=== PATIENT | female | born 2000 | race Caucasian/White ===

== ENCOUNTER 2022-01-09 11:48 | Emergency (ER) | payer OTHER, SELFPAY ==
[2022-01-09 11:54] VITALS: BP 108/62; PULSE 107; RESP 14; TEMP 36.6; O2SAT 99
[2022-01-09 12:03] VITALS: BP 108/62; PULSE 107; RESP 14; TEMP 36.6; O2SAT 99
--- NOTE | 2022-01-09 12:05 | ED.GENADULT ---
HPI - General Adult General Chief complaint: Nausea/Vomiting/Diarrhea Stated complaint: Vomiting/Diarrhea Time Seen by Provider: 01/09/22 12:05 Source: patient Mode of arrival: ambulatory Limitations: no limitations History of Present Illness HPI narrative: 21-year-old female patient presents to the [facility] with complaints of nausea vomiting diarrhea that started this past . Patient states she did test her self on Monday for COVID and it was negative. Patient states she is vaccinated for COVID. Patient states she is also being cramping and did start her period yesterday. Patient is sexually active but not on control. Patient denies any pain with urination. Patient states she has been able to keep down a little water today but started vomiting again this morning. Denies any abdominal pain when she is not vomiting. Patient denies any runny nose, congestion, sore throat, coughing, sneezing, chest pain or shortness of breath at this time. Related Data Allergies Allergy/AdvReac Type Severity Reaction Status Date / Time No Known Allergies Allergy Mild Verified 01/09/22 12:02 Review of Systems Review of Systems: CONSTITUTIONAL: Denies fever, chills, or sweats. EYES: Denies visual changes, redness, or discharge. ENT: Denies rhinorrhea, congestion, sore throat, or otalgia. CARDIOVASCULAR: Denies chest pain, palpitations, or edema. RESPIRATORY: Denies cough or dyspnea. GASTROINTESTINAL: Denies abdominal pain, positive nausea, vomiting, and diarrhea. GENITOURINARY: Denies dysuria or hematuria. SKIN: Denies rash or itching. MUSCULOSKELETAL: Denies back pain, joint pain, or myalgia. NEUROLOGIC: Denies headache, numbness, or weakness. PSYCHIATRIC: Denies anxiety or depression. PMFSH Past Medical History Medical History (Updated 01/09/22 @ 12:54 by JOSE Simental) No significant past medical history Family History Family History (Updated 04/13/18 @ 15:02 by DOCTOR UNKNOWN) Grandparent Diabetes mellitus Family history of malignant neoplasm of brain Father Family history of hypercholesterolemia Hypertension Other Family history of lupus erythematosus Family history of malignant neoplasm of breast Social History Social History Smoking status: Never smoker Alcohol intake: never Exam Narrative: GENERAL: Well-appearing, well-nourished, and in no acute distress. HEAD: Normocephalic, atraumatic. EYES: PERRLA and EOMI. ENT: Right nare with erythema and edema noted, no rhinorrhea or epistaxis. Mucous membranes moist. Posterior pharynx with postnasal drip noted with slight erythema but no swelling or exudates noted. Bilateral TMs are clear with no erythema or foreign bodies to the canal. NECK: Supple. No lymphadenopathy CHEST: Clear to auscultation. No respiratory distress. Patient able talk in clear complete sentences. No tripoding noted. HEART: Regular rate and rhythm. No murmur heard. Normal peripheral pulses. ABDOMEN: Soft, flat, nondistended. No guarding, rebound tenderness, or rigid. No pulsatilla masses. Bowel sounds present in all four quadrants. No organomegaly. Negative Carlos?s sign. No periumbicial tenderness. No Supra public tenderness or distension. Good femoral pulses bilaterally. No hernia noted. No scars or surface trauma. EXTREMITIES: Normal range of motion. No edema. SKIN: Warm, dry, no rash. NEURO: No focal deficits. Alert and oriented x3. Course Course Level of Care: Express Care Visit Reevaluation(s) Reevaluation #1: Reevaluated patient still patient states she is feeling much better since receiving the Zofran. Discussed with her that all of her testing back negative. Discussed with her most likely this is a virus we will go ahead and send her home with Zofran to help with the vomiting so she can hydrate at home however if she continues to have vomiting despite the Zofran I would advise her to go the ER for further evaluation and treatment. Patient verbalized unde
[2022-01-09] MEDS: ONDANSETRON HCL ODT 4 MG TABLET PO (12:20)
== END 2022-01-09 12:56 | disposition home or self-care (01) ==
PROVIDERS: Emergency Provider Nurse Practitioner Family; PCP Family Medicine
DX: K52.9 Noninfective gastroenteritis and colitis, unspecified (principal); Z20.822 Contact with and (suspected) exposure to COVID-19
CPT/HCPCS: 81003; 81025; 87081; 87426; 87880; 99213; A9270; C9803; G0463

== ENCOUNTER 2025-03-11 16:26 | Outpatient (CLI) | payer OTHER, SELFPAY ==
--- NOTE | ~2025-03-11 | CT_ITS ---
Exam: CT chest without contrast Clinical History: [Abnormal findings on diagnostic imaging. Left lung nodule ] Comparison: [ None available] Technique: Multiple axial CT images of the chest without with IV contrast. Sagittal and coronal reformatted images were obtained. FINDINGS: Lungs and pleura: [ Visualized tracheobronchial tree is patent.] No pneumothorax. No pleural effusion. No pulmonary mass. There is a 9 mm noncalcified pulmonary nodule in the medial aspect of the left upper lobe. Mediastinum and pulmonary umesh: [ No mass or adenopathy.] Axillary/intramammary and supraclavicular: [ No mass or adenopathy.] Heart and great vessels: [ Normal heart size.[ [ No pericardial effusion.] [ No aneurysm.] Chest Wall: [ Unremarkable.] Upper Abdomen: [ No significant findings.] Osseous structures: [ No acute fracture or destructive lesion.] [ Multilevel degenerative change in the visualized spine.] Additional findings: [ None of significance.] IMPRESSION: 1. There is a 9 mm noncalcified pulmonary nodule in the medial aspect of the left upper lobe. A PET/CT and/or biopsy is recommended. Reviewed, dictated and finalized at location Q. IMPRESSION: 1. There is a 9 mm noncalcified pulmonary nodule in the medial aspect of the le ft upper lobe. A PET/CT and/or biopsy is recommended.
--- OUTSIDE RECORDS SUMMARY | 2025-03-11 17:54 | XMS_ITS | Clinical Summary ---
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 Name Role Phone Unavailable Primary Care Provider Unavailabl e Allergies No known active allergies Medications levonorgestreL-e thinyl estrad (Sronyx) 0.1-20 mg-mcg tablet TAKE 1 TABLET BY MOUTH EVERY DAY 84 Tablet 04/25/2023 Active Active Problems No known active problems Social History Tobacco Use Types Packs/Day Years Used Date Smoking Tobacco: Never Assessed Comments No Sex and Gender Information Value Date Recorded Sex Assigned at Not on file Legal Sex Female 3:01 PM CDT Gender Identity Not on file Sexual Orientation Not on file Last Filed Vital Signs Vital Sign Reading Time Taken Comments Blood Pressure 112/66 03/14/2022 8:10 AM CDT Pulse - - Temperature - - Respiratory Rate - - Oxygen Saturation - - Inhaled Oxygen Concentration - - Weight 47.1 kg (103 lb 12.8 oz) 03/14/2022 8:10 AM CDT Height 157.5 cm (5' 2) 03/14/2022 8:10 AM CDT Body Mass Index 18.99 03/14/2022 8:10 AM CDT Plan of Treatment Health Maintenance Due Date Last Done Comments CHLAMYDIA SCREENING (ANNUAL) 11-24 YEARS 2013 HPV VACCINES (1 - 3-dose series) 2017 DTAP/TDAP/TD VACCINES (1 - Tdap) 2021 HEPATITIS B VACCINES (1 of 3 - 19+ 3-dose series) 02/13 CERVICAL CANCER SCREENING 2023 HPV/Cotest (21-29) 2023 PAP SMEAR 2023 INFLUENZA VACCINE (#1) [address] [employer]
--- OUTSIDE RECORDS SUMMARY | 2025-03-11 17:54 | XMS_ITS | Encounter Summary ---
Author Organization [facility] Address [address] 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 Name Role Phone Unavailable Primary Care Provider Unavailabl e Reason for Visit * Reason Onset Date Comments Patient Requested Call 04/16/2024 Encounter Details Date Type Department Care Team (Late st Contact Info) Description 04/16/2024 Telephone [facility] [address] [place], [place] [id number] Elsie Olivas APRN-CNP [address] [place] [address] Patient Requested Call Social History Tobacco Use Types Packs/Day Years Used Date Smoking Tobacco: Never Smokeless Tobacco: Never Alcohol Use Standard Drinks/Week Comments Yes 0 (1 standard drink = 0.6 oz pur e alcohol) occasionally PHQ-2 Answer Date Recorded Patient Health Questionnaire-2 Score 0 04/15/2024 Comments No Sex and Gender Information Value Date Recorded Sex Assigned at Not on file Legal Sex Female 5:28 PM JOURNEYMAN WELDER Gender Identity Not on file Sexual Orientation Not on file documented as of this encounter Miscellaneous Notes * Telephone Encounter - Alida Hernández APRN-CNP - 04/16/2024 12:17 PM JOURNEYMAN WELDER Gave her Billing phone # NEYMAN WELDER * Telephone Encounter - Radha Figueredo - 04/16/2024 12:04 PM CST Who is calling? self What is the reason for call? Patient had trouble with insurance going thru. Dad checked out his insurance and it should be fine and is active. Expected Response from the Clinic? Please call patient at the above noted phone number. Did you notify caller of response or call back timeframe? YES Encounter before 6:30p - same day NOTE: You can also call [facility] NEYMAN WELDER NEYMAN WELDER documented in this encounter Plan of Treatment Not on file documented as of this encounter Visit Diagnoses Not on filedocumented in this encounter
--- OUTSIDE RECORDS SUMMARY | 2025-03-11 17:54 | XMS_ITS | Clinical Summary ---
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 Epidural hematoma: No epidural hematoma. Intraparenchymal hemorrhage: No intraparenchymal hemorrhage. Subarachnoid hemorrhage: No subarachnoid hemorrhage. Intraventricular hemorrhage: No. Midline shift: No. Procedure Note Baljinder Delgado MD - 02/11/2025 PROCEDURE: CT HEAD WO CONTRAST, CT LUMBAR SPINE WO CONTRAST, CTTHORACIC SPINE WO CONTRAST, CT CERVICAL SPINE WO CONTRAST, CT FACIAL BONES WO CONTRAST, DATE/TIME OF EXAM: 02/11/2025 3:34 PM, LOCATION [facility] INDICATION: T14.90XA: Trauma ADDITIONAL CLINICAL INFORMATION: Ordering Provider Reason For Exam: Technologist Note: Additional: COMPARISON: None. TECHNIQUE: CT of the head, cervical spine, and maxillofacial bones,orbits, and paranasal sinuses was performed without contrast according tostandard protocol. Reformatted axial, sagittal, and coronal images of thethoracic and lumbar spine were obtained by the technologist from a concurrently performed body CT and sent to the workstation for review. COMPARISON: FINDINGS: Head: No acute intra- or extra-axial fluid collections are identified. The ventricles are of normal size, shape, and morphology. The basilarcisterns are patent. No mass effect or midline shift is seen. The aponte-whitematter differentiation is normal. No acute calvarial fracture is identified.CSF containing outpouching of the planum sphenoid without associated parenchymal changes, likely congenital or chronic posttraumatic (series4 image 163, series 6 image 22). Maxillofacial: The orbits appear normal. The paranasal sinuses are clear. Leftward deviation of nasal septum with bony spur. The hard palate, mandible, and temporomandibular joints appear normal. No acute facial bone fracturesare identified. The mastoid air cells are clear. Small left periorbital soft tissue hematoma. Cervical spine: There is gentle cervical kyphosis. Vertebral bodies are normal in height without evidence of acute fracture. The craniocervical junction isnormal. The intervertebral discs appear normal. No central canal stenosis isseen. The facets appear normal. The uncovertebral joints appear normal. Noneural foraminal stenosis is seen. There is mild scarring in the lung apices. Thoracic spine: Mild dextrocurvature of the thoracic spine. Vertebral bodies are normalin height without evidence of acute fracture. The intervertebral discsappear normal. No central canal stenosis is seen. The facets appear normal.No neural foraminal stenosis is seen. No soft tissue abnormality is identified. Lumbar spine: The lumbar spine is straightened which could be positional. Vertebral bodies are normal in height without evidence of acute fracture. The intervertebral discs appear normal. No central canal stenosis is seen.The facets appear normal. No neural foraminal stenosis is seen. No softtissue abnormality is identified. Brain injury guidelines: Skull fracture: No Subdural hematoma: No subdural hematoma. Epidural hematoma: No epidural hematoma. Intraparenchymal hemorrhage: No intraparenchymal hemorrhage. Subarachnoid hemorrhage: No subarachnoid hemorrhage. Intraventricular hemorrhage: No. Midline shift: No. IMPRESSION: 1.No acute intracranial hemorrhage, territorial infarct or herniation.No acute calvarial fractures. 2.No acute facial bone fractures identified. CSF containing outpouchingof the planum sphenoidale without associated parenchymal changes, likely congenital or less likely chronic posttraumatic deformity (series 4image 163, series 6 image 22). 3.No evidence of acute fracture in the cervical, thoracic, or lumbarspine. 4.Please refer to the concurrent, dedicated body report for findings inthe chest, abdomen, and pelvis. The report was drafted by Mario Ocampo MD (psychiatry resident) 02/11/2025 3:38 PM. > Dictated by Mario Ocampo MD 02/11/2025 3:37 PM > Dictated by Microbiology Coordinator I, Baljinder Delgado MD have personally reviewed and interpreted this examination/study. > Interpreting Provider: Baljinder Delgado MD on 02/11/2025 5:08 PM Benji Sosa MD CT ORDERABLES Final Resu lt * CT CERVICAL SPINE WO CONTRAST - C-Spine Trauma, Spine fracture (02/11/2025 3:33 PM CDT) Anatomical Region Laterality Modality Spine Computed Tomogra phy 02/11/2025 3:37 PM CDT Impressions 02/11/2025 5:08 PM CDT IMPRESSION: 1.No acute intracranial hemorrhage, territorial infarct or herniation. No acute calvarial fractures. 2.No acute facial bone fractures identified. 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 3.No evidence of acute fracture in the cervical, thoracic, or lumbar spine. 4.Please refer to the concurrent, dedicated body report for findings in the chest, abdomen, and pelvis. The report was drafted by Mario Ocampo MD (psychiatry resident) 02/11/2025 3:38 PM. > Dictated by Mario Ocampo MD 02/11/2025 3:37 PM > Dictated by Microbiology Coordinator I, Baljinder Delgado MD have personally reviewed and interpreted this examination/study. > Interpreting Provider: Baljinder Delgado MD on 02/11/2025 5:08 PM Narrative 02/11/2025 5:08 PM CDT PROCEDURE: CT HEAD WO CONTRAST, CT LUMBAR SPINE WO CONTRAST, CT THORACIC SPINE WO CONTRAST, CT CERVICAL SPINE WO CONTRAST, CT FACIAL BONES WO CONTRAST, DATE/TIME OF EXAM: 02/11/2025 3:34 PM, LOCATION [facility] INDICATION: T14.90XA: Trauma ADDITIONAL CLINICAL INFORMATION: Ordering Provider Reason For Exam: Technologist Note: Additional: COMPARISON: None. TECHNIQUE: CT of the head, cervical spine, and maxillofacial bones, orbits, and paranasal sinuses was performed without contrast according to standard protocol. Reformatted axial, sagittal, and coronal images of the thoracic and lumbar spine were obtained by the technologist from a concurrently performed body CT and sent to the workstation for review. COMPARISON: FINDINGS: Head: No acute intra- or extra-axial fluid collections are identified. The ventricles are of normal size, shape, and morphology. The basilar cisterns are patent. No mass effect or midline shift is seen. The aponte-white matter differentiation is normal. No acute calvarial fracture is identified. CSF containing outpouching of the planum sphenoid without associated parenchymal changes, likely congenital or chronic posttraumatic (series 4 image 163, series 6 image 22). Maxillofacial: The orbits appear normal. The paranasal sinuses are clear. Leftward deviation of nasal septum with bony spur. The hard palate, mandible, and temporomandibular joints appear normal. No acute facial bone fractures are identified. The mastoid air cells are clear. Small left periorbital soft tissue hematoma. Cervical spine: There is gentle cervical kyphosis. Vertebral bodies are normal in height without evidence of acute fracture. The craniocervical junction is normal. The intervertebral discs appear normal. No central canal stenosis is seen. The facets appear normal. The uncovertebral joints appear normal. No neural foraminal stenosis is seen. There is mild scarring in the lung apices. Thoracic spine: Mild dextrocurvature of the thoracic spine. Vertebral bodies are normal in height without evidence of acute fracture. The intervertebral discs appear normal. No central canal stenosis is seen. The facets appear normal. No neural foraminal stenosis is seen. No soft tissue abnormality is identified. Lumbar spine: The lumbar spine is straightened which could be positional. Vertebral bodies are normal in height without evidence of acute fracture. The intervertebral discs appear normal. No central canal stenosis is seen. The facets appear normal. No neural foraminal stenosis is seen. No soft tissue abnormality is identified. Brain injury guidelines: Skull fracture: No Subdural hematoma: No subdural hematoma. Epidural hematoma: No epidural hematoma. Intraparenchymal hemorrhage: No intraparenchymal hemorrhage. Subarachnoid hemorrhage: No subarachnoid hemorrhage. Intraventricular hemorrhage: No. Midline shift: No. Procedure Note Baljinder Delgado MD - 02/11/2025 PROCEDURE: CT HEAD WO CONTRAST, CT LUMBAR SPINE WO CONTRAST, CTTHORACIC SPINE WO CONTRAST, CT CERVICAL SPINE WO CONTRAST, CT FACIAL BONES WO CONTRAST, DATE/TIME OF EXAM: 02/11/2025 3:34 PM, LOCATION [facility] INDICATION: T14.90XA: Trauma ADDITIONAL CLINICAL INFORMATION: Ordering Provider Reason For Exam: Technologist Note: Additional: COMPARISON: None. TECHNIQUE: CT of the head, cervical spine, and maxillofacial bones,orbits, and paranasal sinuses was performed without contrast according tostandard protocol. Reformatted axial, sagittal, and coronal images of thethoracic and lumbar spine were obtained by the technologist from a concurrently performed body CT and sent to the workstation for review. COMPARISON: FINDINGS: Head: No acute intra- or extra-axial fluid collections are identified. The ventricles are of normal size, shape, and morphology. The basilarcisterns are patent. No mass effect or midline shift is seen. The aponte-whitematter differentiation is normal. No acute calvarial fracture is identified.CSF containing outpouching of the planum sphenoid without associated parenchymal changes, likely congenital or chronic posttraumatic (series4 image 163, series 6 image 22). Maxillofacial: The orbits appear normal. The paranasal sinuses are clear. Leftward deviation of nasal septum with bony spur. The hard palate, mandible, and temporomandibular joints appear normal. No acute facial bone fracturesare identified. The mastoid air cells are clear. Small left periorbital soft tissue hematoma. Cervical spine: There is gentle cervical kyphosis. Vertebral bodies are normal in height without evidence of acute fracture. The craniocervical junction isnormal. The intervertebral discs appear normal. No central canal stenosis isseen. The facets appear normal. The uncovertebral joints appear normal. Noneural foraminal stenosis is seen. There is mild scarring in the lung apices. Thoracic spine: Mild dextrocurvature of the thoracic spine. Vertebral bodies are normalin height without evidence of acute fracture. The intervertebral discsappear normal. No central canal stenosis is seen. The facets appear normal.No neural foraminal stenosis is seen. No soft tissue abnormality is identified. Lumbar spine: The lumbar spine is straightened which could be positional. Vertebral bodies are normal in height without evidence of acute fracture. The intervertebral discs appear normal. No central canal stenosis is seen.The facets appear normal. No neural foraminal stenosis is seen. No softtissue abnormality is identified. Brain injury guidelines: Skull fracture: No Subdural hematoma: No subdural hematoma. Epidural hematoma: No epidural hematoma. Intraparenchymal hemorrhage: No intraparenchymal hemorrhage. Subarachnoid hemorrhage: No subarachnoid hemorrhage. Intraventricular hemorrhage: No. Midline shift: No. IMPRESSION: 1.No acute intracranial hemorrhage, territorial infarct or herniation.No acute calvarial fractures. 2.No acute facial bone fractures identified. CSF containing outpouchingof the planum sphenoidale without associated parenchymal changes, likely congenital or less likely chronic posttraumatic deformity (series 4image 163, series 6 image 22). 3.No evidence of acute fracture in the cervical, thoracic, or lumbarspine. 4.Please refer to the concurrent, dedicated body report for findings inthe chest, abdomen, and pelvis. The report was drafted by Mario Ocampo MD (psychiatry resident) 02/11/2025 3:38 PM. > Dictated by Mario Ocampo MD 02/11/2025 3:37 PM > Dictated by Microbiology Coordinator I, Baljinder Delgado MD have personally reviewed and interpreted this examination/study. > Interpreting Provider: Baljinder Delgado MD on 02/11/2025 5:08 PM Benji Sosa MD CT ORDERABLES Final Resu lt * CT FACIAL BONES WO CONTRAST - Facial trauma, fx suspected, blunt (02/11/2025 3:33 PM CDT) Anatomical Region Laterality Modality Head Computed Tomogra phy 02/11/2025 3:37 PM CDT Impressions 02/11/2025 5:08 PM CDT IMPRESSION: 1.No acute intracranial hemorrhage, territorial infarct or herniation. No acute calvarial fractures. 2.No acute facial bone fractures identified. 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 3.No evidence of acute fracture in the cervical, thoracic, or lumbar spine. 4.Please refer to the concurrent, dedicated body report for findings in the chest, abdomen, and pelvis. The report was drafted by Mario Ocampo MD (psychiatry resident) 02/11/2025 3:38 PM. > Dictated by Mario Ocampo MD 02/11/2025 3:37 PM > Dictated by Microbiology Coordinator I, Baljinder Delgado MD have personally reviewed and interpreted this examination/study. > Interpreting Provider: Baljinder Delgado MD on 02/11/2025 5:08 PM Narrative 02/11/2025 5:08 PM CDT PROCEDURE: CT HEAD WO CONTRAST, CT LUMBAR SPINE WO CONTRAST, CT THORACIC SPINE WO CONTRAST, CT CERVICAL SPINE WO CONTRAST, CT FACIAL BONES WO CONTRAST, DATE/TIME OF EXAM: 02/11/2025 3:34 PM, LOCATION [facility] INDICATION: T14.90XA: Trauma ADDITIONAL CLINICAL INFORMATION: Ordering Provider Reason For Exam: Technologist Note: Additional: COMPARISON: None. TECHNIQUE: CT of the head, cervical spine, and maxillofacial bones, orbits, and paranasal sinuses was performed without contrast according to standard protocol. Reformatted axial, sagittal, and coronal images of the thoracic and lumbar spine were obtained by the technologist from a concurrently performed body CT and sent to the workstation for review. COMPARISON: FINDINGS: Head: No acute intra- or extra-axial fluid collections are identified. The ventricles are of normal size, shape, and morphology. The basilar cisterns are patent. No mass effect or midline shift is seen. The aponte-white matter differentiation is normal. No acute calvarial fracture is identified. CSF containing outpouching of the planum sphenoid without associated parenchymal changes, likely congenital or chronic posttraumatic (series 4 image 163, series 6 image 22). Maxillofacial: The orbits appear normal. The paranasal sinuses are clear. Leftward deviation of nasal septum with bony spur. The hard palate, mandible, and temporomandibular joints appear normal. No acute facial bone fractures are identified. The mastoid air cells are clear. Small left periorbital soft tissue hematoma. Cervical spine: There is gentle cervical kyphosis. Vertebral bodies are normal in height without evidence of acute fracture. The craniocervical junction is normal. The intervertebral discs appear normal. No central canal stenosis is seen. The facets appear normal. The uncovertebral joints appear normal. No neural foraminal stenosis is seen. There is mild scarring in the lung apices. Thoracic spine: Mild dextrocurvature of the thoracic spine. Vertebral bodies are normal in height without evidence of acute fracture. The intervertebral discs appear normal. No central canal stenosis is seen. The facets appear normal. No neural foraminal stenosis is seen. No soft tissue abnormality is identified. Lumbar spine: The lumbar spine is straightened which could be positional. Vertebral bodies are normal in height without evidence of acute fracture. The intervertebral discs appear normal. No central canal stenosis is seen. The facets appear normal. No neural foraminal stenosis is seen. No soft tissue abnormality is identified. Brain injury guidelines: Skull fracture: No Subdural hematoma: No subdural hematoma. Epidural hematoma: No epidural hematoma. Intraparenchymal hemorrhage: No intraparenchymal hemorrhage. Subarachnoid hemorrhage: No subarachnoid hemorrhage. Intraventricular hemorrhage: No. Midline shift: No. Procedure Note Baljinder Delgado MD - 02/11/2025 PROCEDURE: CT HEAD WO CONTRAST, CT LUMBAR SPINE WO CONTRAST, CTTHORACIC SPINE WO CONTRAST, CT CERVICAL SPINE WO CONTRAST, CT FACIAL BONES WO CONTRAST, DATE/TIME OF EXAM: 02/11/2025 3:34 PM, LOCATION [facility] INDICATION: T14.90XA: Trauma ADDITIONAL CLINICAL INFORMATION: Ordering Provider Reason For Exam: Technologist Note: Additional: COMPARISON: None. TECHNIQUE: CT of the head, cervical spine, and maxillofacial bones,orbits, and paranasal sinuses was performed without contrast according tostandard protocol. Reformatted axial, sagittal, and coronal images of thethoracic and lumbar spine were obtained by the technologist from a concurrently performed body CT and sent to the workstation for review. COMPARISON: FINDINGS: Head: No acute intra- or extra-axial fluid collections are identified. The ventricles are of normal size, shape, and morphology. The basilarcisterns are patent. No mass effect or midline shift is seen. The aponte-whitematter differentiation is normal. No acute calvarial fracture is identified.CSF containing outpouching of the planum sphenoid without associated parenchymal changes, likely congenital or chronic posttraumatic (series4 image 163, series 6 image 22). Maxillofacial: The orbits appear normal. The paranasal sinuses are clear. Leftward deviation of nasal septum with bony spur. The hard palate, mandible, and temporomandibular joints appear normal. No acute facial bone fracturesare identified. The mastoid air cells are clear. Small left periorbital soft tissue hematoma. Cervical spine: There is gentle cervical kyphosis. Vertebral bodies are normal in height without evidence of acute fracture. The craniocervical junction isnormal. The intervertebral discs appear normal. No central canal stenosis isseen. The facets appear normal. The uncovertebral joints appear normal. Noneural foraminal stenosis is seen. There is mild scarring in the lung apices. Thoracic spine: Mild dextrocurvature of the thoracic spine. Vertebral bodies are normalin height without evidence of acute fracture. The intervertebral discsappear normal. No central canal stenosis is seen. The facets appear normal.No neural foraminal stenosis is seen. No soft tissue abnormality is identified. Lumbar spine: The lumbar spine is straightened which could be positional. Vertebral bodies are normal in height without evidence of acute fracture. The intervertebral discs appear normal. No central canal stenosis is seen.The facets appear normal. No neural foraminal stenosis is seen. No softtissue abnormality is identified. Brain injury guidelines: Skull fracture: No Subdural hematoma: No subdural hematoma. Epidural hematoma: No epidural hematoma. Intraparenchymal hemorrhage: No intraparenchymal hemorrhage. Subarachnoid hemorrhage: No subarachnoid hemorrhage. Intraventricular hemorrhage: No. Midline shift: No. IMPRESSION: 1.No acute intracranial hemorrhage, territorial infarct or herniation.No acute calvarial fractures. 2.No acute facial bone fractures identified. CSF containing outpouchingof the planum sphenoidale without associated parenchymal changes, likely congenital or less likely chronic posttraumatic deformity (series 4image 163, series 6 image 22). 3.No evidence of acute fracture in the cervical, thoracic, or lumbarspine. 4.Please refer to the concurrent, dedicated body report for findings inthe chest, abdomen, and pelvis. The report was drafted by Mairo Ocampo MD (psychiatry resident) 02/11/2025 3:38 PM. > Dictated by Mario Ocampo MD 02/11/2025 3:37 PM > Dictated by Microbiology Coordinator Baljinder Thorpe MD have personally reviewed and interpreted this examination/study. > Interpreting Provider: Baljinder Delgado MD on 02/11/2025 5:08 PM Benji Sosa MD CT ORDERABLES Final Resu lt * CT HEAD WO CONTRAST - Head Trauma, CSF leak, mental status changes (02/11/2025 3:33 PM CDT) Anatomical Region Laterality Modality Head Computed Tomogra phy 02/11/2025 3:37 PM CDT Impressions 02/11/2025 5:08 PM CDT IMPRESSION: 1.No acute intracranial hemorrhage, territorial infarct or herniation. No acute calvarial fractures. 2.No acute facial bone fractures identified. 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 3.No evidence of acute fracture in the cervical, thoracic, or lumbar spine. 4.Please refer to the concurrent, dedicated body report for findings in the chest, abdomen, and pelvis. The report was drafted by Mario Ocampo MD (psychiatry resident) 02/11/2025 3:38 PM. > Dictated by Mario Ocapmo MD 02/11/2025 3:37 PM > Dictated by Microbiology Coordinator Baljinder Thorpe MD have personally reviewed and interpreted this examination/study. > Interpreting Provider: Baljinder Delgado MD on 02/11/2025 5:08 PM Narrative 02/11/2025 5:08 PM CDT PROCEDURE: CT HEAD WO CONTRAST, CT LUMBAR SPINE WO CONTRAST, CT THORACIC SPINE WO CONTRAST, CT CERVICAL SPINE WO CONTRAST, CT FACIAL BONES WO CONTRAST, DATE/TIME OF EXAM: 02/11/2025 3:34 PM, LOCATION [facility] INDICATION: T14.90XA: Trauma ADDITIONAL CLINICAL INFORMATION: Ordering Provider Reason For Exam: Technologist Note: Additional: COMPARISON: None. TECHNIQUE: CT of the head, cervical spine, and maxillofacial bones, orbits, and paranasal sinuses was performed without contrast according to standard protocol. Reformatted axial, sagittal, and coronal images of the thoracic and lumbar spine were obtained by the technologist from a concurrently performed body CT and sent to the workstation for review. COMPARISON: FINDINGS: Head: No acute intra- or extra-axial fluid collections are identified. The ventricles are of normal size, shape, and morphology. The basilar cisterns are patent. No mass effect or midline shift is seen. The aponte-white matter differentiation is normal. No acute calvarial fracture is identified. CSF containing outpouching of the planum sphenoid without associated parenchymal changes, likely congenital or chronic posttraumatic (series 4 image 163, series 6 image 22). Maxillofacial: The orbits appear normal. The paranasal sinuses are clear. Leftward deviation of nasal septum with bony spur. The hard palate, mandible, and temporomandibular joints appear normal. No acute facial bone fractures are identified. The mastoid air cells are clear. Small left periorbital soft tissue hematoma. Cervical spine: There is gentle cervical kyphosis. Vertebral bodies are normal in height without evidence of acute fracture. The craniocervical junction is normal. The intervertebral discs appear normal. No central canal stenosis is seen. The facets appear normal. The uncovertebral joints appear normal. No neural foraminal stenosis is seen. There is mild scarring in the lung apices. Thoracic spine: Mild dextrocurvature of the thoracic spine. Vertebral bodies are normal in height without evidence of acute fracture. The intervertebral discs appear normal. No central canal stenosis is seen. The facets appear normal. No neural foraminal stenosis is seen. No soft tissue abnormality is identified. Lumbar spine: The lumbar spine is straightened which could be positional. Vertebral bodies are normal in height without evidence of acute fracture. The intervertebral discs appear normal. No central canal stenosis is seen. The facets appear normal. No neural foraminal stenosis is seen. No soft tissue abnormality is identified. Brain injury guidelines: Skull fracture: No Subdural hematoma: No subdural hematoma. Epidural hematoma: No epidural hematoma. Intraparenchymal hemorrhage: No intraparenchymal hemorrhage. Subarachnoid hemorrhage: No subarachnoid hemorrhage. Intraventricular hemorrhage: No. Midline shift: No. Procedure Note Baljinder Delgado MD - 02/11/2025 PROCEDURE: CT HEAD WO CONTRAST, CT LUMBAR SPINE WO CONTRAST, CTTHORACIC SPINE WO CONTRAST, CT CERVICAL SPINE WO CONTRAST, CT FACIAL BONES WO CONTRAST, DATE/TIME OF EXAM: 02/11/2025 3:34 PM, LOCATION [facility] INDICATION: T14.90XA: Trauma ADDITIONAL CLINICAL INFORMATION: Ordering Provider Reason For Exam: Technologist Note: Additional: COMPARISON: None. TECHNIQUE: CT of the head, cervical spine, and maxillofacial bones,orbits, and paranasal sinuses was performed without contrast according tostandard protocol.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
--- OUTSIDE RECORDS SUMMARY | 2025-03-11 17:54 | XMS_ITS | Clinical Summary ---
Author Organization [facility] Address [address] [place] [address] Phone Care Team Providers Care Case Manager Specialist Name Role Phone Provider, None Primary Care Provider Unavailabl e Allergies No known active allergies Medications No known medications Active Problems No known active problems Social History Tobacco Use Types Packs/Day Years Used Date Smoking Tobacco: Never Smokeless Tobacco: Never Comments No Sex and Gender Information Value Date Recorded Sex Assigned at Not on file Legal Sex Female 10:37 AM CDT Gender Identity Not on file Sexual Orientation Not on file Last Filed Vital Signs Vital Sign Reading Time Taken Comments Blood Pressure 98/60 10/12/2020 10:52 AM CDT Pulse 64 10/12/2020 10:52 AM CDT Temperature 36.7 C (98 F) 10/12/2020 10:52 AM CDT Respiratory Rate 16 10/12/2020 10:5 2 AM CDT Oxygen Saturation 93% 10/12/2020 10: 52 AM CDT artificial nails Inhaled Oxygen Concentration - - Weight 44.5 kg (98 lb) 10/12/2020 10:52 AM CDT Height - - Body Mass Index - - Plan of Treatment Health Maintenance Due Date Last Done Comments Hepatitis C Virus (HCV) Screening 2002 TdaP Immunization 2002 Hepatitis B Immunization (3 of 3 - 3-dose series) 2002 2002, 2002 Human Papillomavirus (HPV) Immunization (1 - 3-dose series) 2017 Meningococcal B Immunization (1 of 2 - Standard) 2018 Influenza Immunization (#1) 2025 SARS-COV-2 Immunization (3 - season) 2025 01/25/2021, 01/04/2021 Respiratory Syncytial Virus (RSV) Immunization (Adult) (1 - 1-dose 75+ series) 2077 DTaP/Tdap/Td Immunization Discontinued 2002, 2002 Pneumococcal Immunization Combined Aged Out 2002 No longer eligible based on patient's age to complete this topic Polio (IPV) Immunization Discontinued 003, 2002 Meningococcal Immunization (ACWY) Completed 12/19/2019 Rotavirus Immunization Aged Out No lo nger eligible based on patient's age to complete this topic Care Teams Case Manager Specialist Relationship Specialty Start Date End Date Provider, None [place] PCP - General 10/12/20
== END 2025-03-11 16:27 | disposition home or self-care (01) ==
PROVIDERS: PCP Student in an Organized Health Care Education/Training Program; Visit Provider Family Medicine
DX: R93.89 Abnormal findings on diagnostic imaging of other specified body structures (principal); R91.1 Solitary pulmonary nodule
CPT/HCPCS: 71250